=== PATIENT | female | born 1985 | race Caucasian/White ===

== ENCOUNTER → 2018-11-08 | Outpatient (CLI) | payer OTHER ==
[~2018-11-08] VITALS: Ht 165.1 cm; Wt 72.0 kg
[~2018-11-08] MED LIST: GIANVI 3 MG-0.01 TAB PO; SYNTHROID0.075 MG/T PO
[2018-11-08 09:09] VITALS: BP 134/94; PULSE 72
[2018-11-08 10:30] VITALS: BP 130/97; PULSE 67
== END ==
LOC: COL.RAD 11-06 11:45
DX: E04.1 Nontoxic single thyroid nodule (principal)